=== PATIENT | female | born 1985 | race African-American/Black ===

== ENCOUNTER 2017-03-08 03:48 | Emergency (ER) | payer MEDICAID ==
[~2017-03-08] VITALS: Ht 167.6 cm; Wt 62.0 kg
[2017-03-08] MEDS ORDERED: KETOROLAC 60MG/2ML VIAL IM ONE (08:15)
[2017-03-08 10:35] VITALS: BP 120/70
== END 2017-03-08 10:52 | disposition home or self-care (01) ==
LOC: ER 04:33
DX: S62.001A Unspecified fracture of navicular [scaphoid] bone of right wrist, initial encounter for closed fracture (principal); Y04.0XXA Assault by unarmed brawl or fight, initial encounter; Y93.89 Activity, other specified; Y92.018 Other place in single-family (private) house as the place of occurrence of the external cause
CPT/HCPCS: 29125; 73110; 73130; 81025; 96372; 99284; J1885; Z7610